=== PATIENT | female | born 1985 | race American Indian/Alaskan Native ===

== ENCOUNTER 2018-03-01 19:12 | Emergency (ER) | payer MEDICAID ==
--- NOTE | 2018-03-01 19:25 | ED PDOC ---
Arrival/HPI - General Time Seen by Provider: 03/01/18 19:16 Historian: Patient - History of Present Illness Narrative History of Present Illness (Text): 03/01/18 19:23 33 y/o female, pmh including asthma, +smoker, nkda, c/o coughing/wheezing x 5 days. Pt. has productive coughing, associated with wheezing, no night sweat, no shortness of breath, no numbness or tingling, no bodyache, no night sweat, no dizziness, no other medical or psychological complaints. Past Medical History - Provider Review Nursing Documentation Reviewed: Yes Family/Social History - Physician Review Nursing Documentation Reviewed: Yes Family/Social History: Unknown Family HX Allergies/Home Meds Allergies/Adverse Reactions: Allergies aspirin [From [facility]] Allergy (Verified 03/01/18 19:28) ANAPHYLAXIS citric acid [From [facility]] Allergy (Verified 03/01/18 19:28) ANAPHYLAXIS sodium bicarbonate [From [facility]] Allergy (Verified 03/01/18 19:28) ANAPHYLAXIS Review of Systems - Review of Systems Constitutional: absent: Fatigue, Fevers Eyes: absent: Vision Changes ENT: absent: Hearing Changes Respiratory: Cough, Sputum, Wheezing. absent: SOB Cardiovascular: absent: Chest Pain Gastrointestinal: absent: Abdominal Pain, Diarrhea, Nausea, Vomiting Musculoskeletal: absent: Arthralgias, Back Pain Skin: absent: Rash, Pruritis Neurological: absent: Headache Psychiatric: absent: Anxiety, Depression Physical Exam - Systems Exam Head: Present: Atraumatic, Normocephalic Pupils: Present: PERRL Extroacular Muscles: Present: EOMI Conjunctiva: Present: Normal Mouth: Present: Moist Mucous Membranes Neck: Present: Normal Range of Motion Respiratory/Chest: Present: Wheezes, Decreased Breath Sounds, Rales, Rhonchi. No: Respiratory Distress, Accessory Muscle Use, Retracting, Tachypneic, Tender to Palpation Cardiovascular: Present: Regular Rate and Rhythm, Normal S1, S2. No: Murmurs Abdomen: No: Tenderness, Distention, Peritoneal Signs Back: Present: Normal Inspection. No: CVA Tenderness, Midline Tenderness, Paraspinal Tenderness Upper Extremity: Present: Normal Inspection. No: Cyanosis, Edema Lower Extremity: Present: Normal Inspection. No: Edema Neurological: Present: GCS=15, CN II-XII Intact, Speech Normal, Motor Func Grossly Intact, Gait Normal, Memory Normal Skin: Present: Warm, Dry, Normal Color. No: Rashes Psychiatric: Present: Alert, Oriented x 3, Normal Insight, Normal Concentration Medical Decision Making ED Course and Treatment: 03/01/18 19:25 -Chest xray -prednisone/duoneb -Observe and reassess 03/01/18 21:22 -Urine hcg is negative -Chest xray: No acute cardiopulmonary pathology is evident. -Pt. feels much better, wheezing resolved, walking around without shortness of breath, speaking in full sentences. -Zithromax and prednisone/singulari ordered. -Discharge home with zithromax, albuterol, prednisone, singulair, stay hydrated, follow up with your own pmd within 2 days, return to the ER for any new or worsening signs or symptoms. - RAD Interpretation Radiology Orders: EXAM: CR Chest, 2 View. CLINICAL HISTORY: COUGH COMPARISON: None provided. FINDINGS: LUNGS: The lungs appear within normal limits. PLEURAL SPACES: No evidence of pleural effusion or pneumothorax. MEDIASTINUM: Cardiac size and mediastinal contours within normal limits. BONES: No aggressive appearing osseous lesion seen. IMPRESSION: No acute cardiopulmonary pathology is evident. Electronically signed on Mar 01, 2018 9:03:48 PM EST by: Palmer Meza M.D., [facility] Certified By [facility] [facility] Fellowship Trained MRI and CT Specialist Design Maintenance Engineer: Radiologist - PA / LIBRARY MEDIA SPECIALIST / Resident Statement MD/DO has reviewed & agrees with the documentation as recorded. Disposition/Present on Arrival - Present on Arrival Any Indicators Present on Arrival: No History of DVT/PE: No History of Uncontrolled Diabetes: No Urinary Catheter: No History of Decub. Ulcer: No - Disposition Have Diagnosis and Disposition been Completed?: Yes Diagnosis: Bronchitis Disposition: HOME/ ROUTINE Disposition Time: 21:24 Patient Plan: Discharge Condition: IMPROVED Additional Instructions: -Discharge home with zithromax, albuterol, prednisone, singulair, stay hydrated, follow up with your own pmd within 2 days, return to the ER for any new or worsening signs or symptoms. Prescriptions: Albuterol HFA [Ventolin HFA 90 mcg/actuation (8 g)] 2 puff IH [id number] PRN #1 in PRN Reason: Other Azithromycin [Zithromax] 250 mg PO DAILY #4 tab Montelukast Sodium [Singulair] 10 mg PO DAILY #10 tab Prednisone 50 mg PO DAILY #4 tab Referrals: [facility] [place] [Outside] - Follow up with primary Forms: WORK NOTE
[2018-03-01 19:34] VITALS: RESP 18; TEMP 97.9; O2SAT 100
[2018-03-01] MEDS: Albuterol-Ipratrop 3 mg / 0.5 (3 ml) UD IH SCH ×3 (19:45→20:15)
[2018-03-01 21:41] VITALS: BP 149/90; PULSE 92
--- NOTE | 2018-03-02 09:12 | RAD ---
Date of service: 03/01/2018 HISTORY: cough x 1 week COMPARISON: No prior. TECHNIQUE: Chest PA and lateral FINDINGS: LUNGS: No active pulmonary disease. PLEURA: No significant pleural effusion identified. No pneumothorax apparent. CARDIOVASCULAR: No aortic atherosclerotic calcification present. Normal cardiac size. No pulmonary vascular congestion. OSSEOUS STRUCTURES: No significant abnormalities. VISUALIZED UPPER ABDOMEN: Normal. OTHER FINDINGS: None. IMPRESSION: No active disease. Concordant results with the preliminary interpretation rendered by the emergency department physician procedure.
== END 2018-03-01 21:41 | disposition home or self-care (01) ==
LOC: ED 19:12
DX: J40 Bronchitis, not specified as acute or chronic (principal)